=== PATIENT | female | born 1990 | race Caucasian/White ===

== ENCOUNTER 2023-05-27 06:15 | Emergency (ER) | payer BC, SELFPAY ==
[2023-05-27 06:19] VITALS: BP 157/93; PULSE 70; RESP 18; TEMP 37.1; O2SAT 99
--- NOTE | 2023-05-27 06:30 | RT.EKG_ITS ---
APPROVED REPORT Exam: Resting ECG Reason for Exam: QT prolonging meds Patient Location: E HR:51 bpm ECG Measurements Heart Rate 51 AXIS DE 157 P 23 QRSd 77 QRS 30 QT 449 T 26 QTc 414 Conclusion Sinus bradycardia...rate< [address] segment or T wave abnormalities to suggest occlusive MS
[2023-05-27] MEDS: Normal Saline 1,000 ML 1000 ML IV (06:40)
--- NOTE | 2023-05-27 06:40 | ED.GENADUL_ITS ---
HPI General Stated Complaint: Nausea/Vomit/Diar Mode of arrival: ambulatory. HERBERT: 3 Date/Time Provider Initiated Documentation: 05/27/23 06:19. Limitations to Documentation: no limitations. Information obtained by: patient. HPI Narrative: 33yo F with hx depression/anxiety, migraines, presenting with persistent vomiting. COVID + on 05/24/22, since then has had cough, sore through, rhinorhea, diarrhea, and vomiting. Most bothersome symptom is vomiting, unable to keep down fluids this morning. Nonbloody nonbilious. Now dry heaving. No difficulty breathing. Has not checked her temperature, has had chills and body aches. No rash, chest pain, shortness of breath, pleuritc pain, LE edema, or other concerns. Related Data Home Medications Medication Instructions Recorded Confirmed escitalopram oxalate 10 mg tablet 10 mg PO DAILY 05/27/23 05/27/23 (Lexapro) levonorgestrel-ethinyl estradiol 1 tab PO DAILY 05/27/23 05/27/23 0.1 mg-20 mcg tablet (Vienva) Allergies Allergy/AdvReac Type Severity Reaction Status Date / Time No Known Allergies Allergy Unverified 05/27/23 06:24 Review of Systems Narrative: see HPI PFSH Social History Smoking risk assessment performed?: No Alcohol Intake: never Exam Narrative Exam Narrative: General: Alert, well appearing, well nourished, in no acute distress. Head: Normocephalic, atraumatic Neck: Trachea midline, ?Neck supple. ENT: ?Slightly dry mucous membranes. Cardiac: ?RRR, no murmurs appreciated Resp: No respiratory distress. CTAB. Abd: ?Soft, non-distended, nontender Extremities: ?No deformities.? No peripheral edema. Neurologic: GCS 15. ? Moves all extremities freely against gravity Course Vital Signs Vital signs: Vital Signs Temperature 37.1 C 05/27/23 06:19 Pulse 70 05/27/23 06:19 Respiratory Rate 18 05/27/23 06:19 Blood Pressure 157/93 H 05/27/23 06:19 Pulse Oximetry 99 05/27/23 06:19 Temperature 37.1 C 05/27/23 06:19 Temperature Source Temporal Artery Scan 05/27/23 06:19 Pulse 70 05/27/23 06:19 Respiratory Rate 18 05/27/23 06:19 Respiratory Effort Normal 05/27/23 06:26 Blood Pressure 157/93 H 05/27/23 06:19 Pulse Oximetry 99 05/27/23 06:19 Pain Level 5 05/27/23 06:19 Medical Decision Making 33yo F with hx depression/anxiety, migraines, presenting with persistent vomiting. COVID + on 05/24/22, since then has typical COVID symptoms. No respiratory distress. Presents today as she is unable to keep down fluids this morning, dry heaving. Vital signs reassuring on arrival, slightly tacky mucous membranes otherwise benign physical exam. No abdominal tenderness. Not septic. No tenderness to suggest acute intrabdominal process; would not get CT imaging. No respiratory distress or tachycardia, low suspicion for pneumonia or pu lmonary embolism, would not get dimer or CXR. Will treat symptoms with zofran, give 1L IVFB. Low suspicion for significant dehydration with reassuring vital signs; will get CBC & CMP to further evaluate. EKG with no QT prolongation. Labs reviewed as below, CBC and CMP reassuring, no leukocytosis, mild hypokalemia to 3.2. Oral repletion ordered for when patient able to tolerate PO. Signed out to oncoming physician pending PO challenge. If able to keep down fluids, would dc with prescription for zofran. Lab Data Lab results reviewed: Yes I reviewed the patient's lab results. Labs: Laboratory Tests Range/Units 05/27/23 06:30 WBC (4.4-10.8) 10^3/uL 7.73 RBC (3.93-5.22) 10^6/uL 4.86 Hgb (11.2-15.7) g/dL 14.5 Hct (36.0-46.0) % 42.5 MCV (80-95) fL 87 MCH (27.0-33.0) pg 29.8 MCHC (32.0-36.0) % 34.1 RDW (11.7-14.6) % 12.3 Plt Count (130-400) 10^3/uL 409 H MPV (8.0-11.0) fL 9.7 Immature Gran % 0.4 Neutrophils % 70.5 Lymphocytes % 19.7 Monocytes % 9.1 Eosinophils % 0.0 Basophils % 0.3 Nucleated RBC % (0.0-0.3) % 0.0 Absolute Neutrophils (1.2-6.7) 10^3/uL 5.46 Absolute Lymphocytes (1.2-3.4) 10^3/uL 1.52 Absolute Monocytes (0.1-0.8) 10^3/uL 0.70 Absolute Eosinophils (0.0-0.7) 10^3/uL 0.00 Absolute Basophils (0.0-0.2) 10^3/uL 0.02 Sodium (136-145) mmol/L 136 Potassium (3.5-5.1) mmol/L 3.2 L Chloride (98-107) mmol/L 101 Carbon Dioxide (21.0-32.0) mmol/L 28.3 Anion Gap (3-11) mmol/L 6.7 BUN (7-18) mg/dL 9 Creatinine (0.55-1.02) mg/dL 0.8 Est GFR (CKD-EPI 2020) (mL/min/1.73m2) 100.33 Glucose (74-106) mg/dL 122 H Calcium (8.5-10.1) mg/dL 8.7 Total Bilirubin (0.2-1.0) mg/dL 0.3 AST (15-37) U/L 42 H ALT (14-59) U/L 67 H Alkaline Phosphatase (46-116) U/L 56 Total Protein (6.4-8.2) g/dL 8.1 Albumin (3.4-5.0) g/dL 3.9 Quality:SDOH Health Related Social Needs: No Data to Display Discharge Plan Discharge Details Chief Complaint: Nausea/Vomit/Diar ED Provider: Reyna Guadalupe Home Meds and New Rx's Prescriptions: No Action escitalopram oxalate [Lexapro] 10 mg tablet 10 mg PO DAILY levonorgestrel-ethinyl estrad [Vienva] 0.1-20 mg-mcg tablet 1 tab PO DAILY
[2023-05-27 06:48] LABS: Abs Immature Grans 0.03 10^3/uL (0.0-0.06); Absolute Basophil Count 0.02 10^3/uL (0.0-0.2); Absolute Lymphocyte Count 1.52 10^3/uL (1.2-3.4); Absolute Neutrophil Count 5.46 10^3/uL (1.2-6.7); Basophils % 0.3; HCT 42.5 % (36.0-46.0); HGB 14.5 g/dL (11.2-15.7); Immature Grans % 0.4; Lymphocytes % 19.7; MCH 29.8 pg (27.0-33.0); MCHC 34.1 % (32.0-36.0); MCV 87 fL (80-95); MPV 9.7 fL (8.0-11.0); Monocytes % 9.1; Neutrophils % 70.5; Platelet Count 409 10^3/uL (130-400); RBC 4.86 10^6/uL (3.93-5.22); RDW 12.3 % (11.7-14.6); RDW-SD 39.9 fL; WBC 7.73 10^3/uL (4.4-10.8)
[2023-05-27] MEDS: Ondansetron 4 MG/2 ML VIAL IVP (06:52)
[2023-05-27 07:07] LABS: ALT 67 U/L (14-59); AST 42 U/L (15-37); Albumin 3.9 g/dL (3.4-5.0); Alkaline Phosphatase 56 U/L (46-116); Anion Gap 6.7 mmol/L (3-11); BUN 9 mg/dL (7-18); Bilirubin, Total 0.3 mg/dL (0.2-1.0); CO2 28.3 mmol/L (21.0-32.0); CREATININE 0.8 mg/dL (0.55-1.02); Calcium 8.7 mg/dL (8.5-10.1); Chloride 101 mmol/L (98-107); Estimated GFR 100.33 (mL/min/1.73m2); Glucose 122 mg/dL (74-106); Potassium 3.2 mmol/L (3.5-5.1); Sodium 136 mmol/L (136-145); Total Protein 8.1 g/dL (6.4-8.2)
[2023-05-27 07:13] LABS: HCG Quant, Pregnancy 1 mIU/mL (1-3)
[2023-05-27] MEDS: Potassium Chloride Liquid 20 MEQ PKT 40 MEQ PO (07:48)
[2023-05-27 07:50] VITALS: BP 150/90; PULSE 78; RESP 17; TEMP 37; O2SAT 100
[2023-05-27] MEDS: POTASSIUM CHLORIDE 20 MEQ/100 ML BAG 50 MEQ IVPB (08:20)
[2023-05-27] MEDS: DEXTROSE 5%-0.9% SALINE 1,000 ML 150 ML IV (08:20)
--- NOTE | 2023-05-27 08:56 | NUR.NOTE ---
Nursing Note: Pt vomited after receiving po liquid potassium. Dr. Palacios aware, order switched to IV.
--- NOTE | 2023-05-27 10:18 | W.EDPROG ---
Date of service: 05/27/23 Time of Service: 10:18 Medical Decision Making Care signed out by Dr. Cabrera, please see her documentation regarding initial ED presentation course. Patient is here with COVID, nausea and vomiting. She was given antiemetic. Plan at signout was to follow-up on p.o. challenge. Patient tolerated p.o. fluid but did not tolerate p.o. potassium. I will give potassium IV and D5 normal saline. Patient tolerating p.o. intake and feeling better. Plan for discharge with outpatient follow-up. Usual and customary discharge instructions were provided and reviewed with the patient. Lab Data Lab results reviewed: Yes I reviewed the patient's lab results. Labs: Laboratory Tests Range/Units 05/27/23 06:30 WBC (4.4-10.8) 10^3/uL 7.73 RBC (3.93-5.22) 10^6/uL 4.86 Hgb (11.2-15.7) g/dL 14.5 Hct (36.0-46.0) % 42.5 MCV (80-95) fL 87 MCH (27.0-33.0) pg 29.8 MCHC (32.0-36.0) % 34.1 RDW (11.7-14.6) % 12.3 Plt Count (130-400) 10^3/uL 409 H MPV (8.0-11.0) fL 9.7 Immature Gran % 0.4 Neutrophils % 70.5 Lymphocytes % 19.7 Monocytes % 9.1 Eosinophils % 0.0 Basophils % 0.3 Nucleated RBC % (0.0-0.3) % 0.0 Absolute Neutrophils (1.2-6.7) 10^3/uL 5.46 Absolute Lymphocytes (1.2-3.4) 10^3/uL 1.52 Absolute Monocytes (0.1-0.8) 10^3/uL 0.70 Absolute Eosinophils (0.0-0.7) 10^3/uL 0.00 Absolute Basophils (0.0-0.2) 10^3/uL 0.02 Sodium (136-145) mmol/L 136 Potassium (3.5-5.1) mmol/L 3.2 L Chloride (98-107) mmol/L 101 Carbon Dioxide (21.0-32.0) mmol/L 28.3 Anion Gap (3-11) mmol/L 6.7 BUN (7-18) mg/dL 9 Creatinine (0.55-1.02) mg/dL 0.8 Est GFR (CKD-EPI 2020) (mL/min/1.73m2) 100.33 Glucose (74-106) mg/dL 122 H Calcium (8.5-10.1) mg/dL 8.7 Total Bilirubin (0.2-1.0) mg/dL 0.3 AST (15-37) U/L 42 H ALT (14-59) U/L 67 H Alkaline Phosphatase (46-116) U/L 56 Total Protein (6.4-8.2) g/dL 8.1 Albumin (3.4-5.0) g/dL 3.9 Beta HCG, Quant (1-3) mIU/mL 1 Quality:SDOH Health Related Social Needs: No Data to Display Sign Out Sign Out Data: Sign Out Comment: 33yo F COVID +, vomiting. No respiratory distress. Labs reassuring, mild hypokalemia 3.2. Given zofran and IVF, liquid potassium ordered. Plan for PO challenge, if able to tolerate oral fluids would dc home with zofran Last updated by Reyna Guadalupe MD at 05/27/23 07:33 Discharge Plan Disposition Patient Disposition: Home Condition: Stable Discharge Details Clinical Impression: COVID, Nausea and vomiting, Hypokalemia ED Provider: Micheal Palacios Home Meds and New Rx's Prescriptions: New prochlorperazine maleate [Compazine] 10 mg tablet 10 mg PO BID PRNQty: 10 0RF Continued escitalopram oxalate [Lexapro] 10 mg tablet 10 mg PO DAILY levonorgestrel-ethinyl estrad [Vienva] 0.1-20 mg-mcg tablet 1 tab PO DAILY Discharge Instructions Instructions: Hypokalemia (ED), Acute Nausea and Vomiting (ED), COVID-19 (Coronavirus Disease 2019) (ED) Additional Instructions: Please drink small amounts of clear fluid frequently today in order to stay hydrated. Use nausea medicine as prescribed. Please maintain home isolation for the next 5 days. Wear a high-quality mask if you must be around others at home and in public. Do not go places where you are unable to wear a mask. For travel guidance, see CDC?s Travel webpage. Do not travel. Stay home and separate from others as much as possible. Use a separate bathroom, if possible. Take steps to improve ventilation at home, if possible. Don?t share personal household items, like cups, towels, and utensils. Monitor your symptoms. If you have an emergency warning sign (like trouble breathing), seek emergency medical care immediately. You may end isolation after day 5 if your symptoms are improving and you are fever free for 24 hours without the use of fever reducing medication. If your symptoms are not improving at day 5 continue to isolate until symptoms are improving and you are fever free for 24 hours without the use of fever reducing medication. Please contact your primary care physician to arrange follow-up. Your blood pressure was elevated today. Please be sure to monitor this and discuss this with your primary care physician. Additional outpatient diagnostic testing and treatment may be necessary should blood pressure remain elevated. Return to the ER immediately for any worsening or new concerning symptoms.
[2023-05-27 10:31] VITALS: BP 132/80; PULSE 78; RESP 17; TEMP 37.2; O2SAT 99
== END 2023-05-27 10:31 | disposition home or self-care (01) ==
LOC: ER 12:19
PROVIDERS: Student in an Organized Health Care Education/Training Program; Emergency Provider Student in an Organized Health Care Education/Training Program
DX: R11.2 Nausea with vomiting, unspecified (principal); U07.1 COVID-19; E87.6 Hypokalemia
CPT/HCPCS: 00123; 36415; 80053; 81025; 93005; 96361; 96365; 96366; 96367; 96375; 99284; 84702; 85025; 93010; 99283; J2405; J3480; J7042